=== PATIENT | female | born 1990 | race American Indian/Alaskan Native ===

== ENCOUNTER 2016-08-06 01:10 | Emergency (ER) | payer SELFPAY ==
[2016-08-06 02:14] LABS: Basophils % (Auto) 0.8 % (0.0-1.8); Eosinophils % (Auto) 3.1 % (0.0-4.3); Hematocrit 34.7 % (30.3-42.9); Hemoglobin 11.4 gm/dl (10.1-14.3); Mean Corpuscular HGB Conc 33 % (30-34); Mean Corpuscular Hemoglobin 27 pg (28-32); Mean Corpuscular Volume 81 fl (79-97); Platelet Count 325 K/mm3 (140-440); Red Blood Count 4.26 M/mm3 (3.65-5.03); Red Cell Distribution Width 14.8 % (13.2-15.2)
[2016-08-06 02:27] LABS: Alanine Aminotransferase 11 units/L (7-56); Albumin/Globulin Ratio 1.4 %; Alkaline Phosphatase 56 units/L (35-129); Anion Gap 17 mmol/L; BUN/Creatinine Ratio 14.28; Blood Urea Nitrogen 10 mg/dL (7-17); Carbon Dioxide 24 mmol/L (22-30); Chloride 101.3 mmol/L (98-107); Glucose 95 mg/dL (65-100); Sodium 138 mmol/L (137-145); Total Protein 6.9 g/dL (6.3-8.2)
--- NOTE | 2016-08-06 04:06 | Cat Scan Report ---
FINAL REPORT EXAM: CT HEAD/BRAIN WO CON HISTORY: headache COMPARISON: None available. TECHNIQUE: Axial images obtained skull base through vertex. FINDINGS: No acute intracranial hemorrhage, midline shift or pathologic extra axial fluid collection. Ventricles and cisterns are normal in size and configuration for the patient's age. Ashby-white differentiation preserved. Calvarium grossly intact. Visualized para-nasal sinuses and mastoid air cells are clear. Visualized orbits are grossly unremarkable. IMPRESSION: No grossly acute intracranial abnormality.
[2016-08-06] MEDS ORDERED: BENADRYL IV ONE (17:09)
[2016-08-06] MEDS ORDERED: REGLAN IV ONE (17:09)
[2016-08-06] MEDS ORDERED: ZOFRAN IV ONE (17:09)
[2016-08-06] MEDS ORDERED: TORADOL IV ONE (17:09)
[2016-08-06] MEDS ORDERED: NACL 0.9% 1000 ML 1,000 ML IV ONE (17:26)
--- NOTE | 2016-08-06 17:26 | Emergency Department Report ---
ED Headache HPI - General Chief Complaint: Syncope Stated Complaint: SYNCOPAL EPISODE/MIGRAINE Time Seen by Provider: 08/06/16 16:28 Source: patient Exam Limitations: no limitations - History of Present Illness Initial Comments: 26 year old female presents to the hospital with headache 1 month. Headache is global and worse behind the eyes, constant, rated 10/10 intensity without aggravating or alleviating factors. Positive white sensitivity reported. No nausea, vomiting, neck pain, or fever. Patient states she has had decreased by mouth intake secondary to pain. She passed out last night was standing and passed out 2 more times [id number] after attempting to stand up. No complaints of chest pain or shortness of breath. Patient fell backwards striking her back and complains of posterior back pain all over that is 10/10 in intensity, constant, aching, and worse with movement and palpation. Patient denies previous headache syndrome Allergies/Adverse Reactions: Allergies No Known Allergies Allergy (Unverified 09/14/15 11:54) Home Medications: Ambulatory Orders Doxycycline [Vibramycin CAP] 100 mg PO Q12HR #14 capsule 09/14/15 Ibuprofen [Motrin] 600 mg PO Q8H PRN #30 tablet 08/06/16 Ondansetron [Zofran Odt] 4 mg PO Q8HR PRN #20 tab.rapdis 08/06/16 traMADol [Ultram 50 MG tab] 50 mg PO Q6HR PRN #20 tablet 08/06/16 ED Review of Systems ROS: Stated complaint: SYNCOPAL EPISODE/MIGRAINE Other details as noted in HPI Comment: All other systems reviewed and negative Other: Constitutional: No fevers chills Eyes: No eye pain visual changes ENT: No ear pain or throat pain Neck: Denies pain Respiratory: Denies cough wheezing shortness of breath Cardiovascular: Denies chest pain, palpitations, syncope GI: Denies abdominal pain, nausea, vomiting, diarrhea : Denies dysuria Musculoskeletal: Denies back pain Skin: Denies rash, lesions, erythema Neurologic: Denies numbness, weakness Psychiatric: Denies suicidal ideation, hallucinations ED Past Medical Hx - Past Medical History Previous Medical History?: No - Surgical History Additional Surgical History: Ectopic Pregnancies X3 - Social History Smoking Status: Current Every Day Smoker Substance Use Type: None - Medications Home Medications: Home Medications Medication Instructions Recorded Confirmed Last Taken Type Doxycycline [Vibramycin CAP] 100 mg PO Q12HR #14 capsule 09/14/15 Unknown Rx Ibuprofen [Motrin] 600 mg PO Q8H PRN #30 tablet 08/06/16 Unknown Rx Ondansetron [Zofran Odt] 4 mg PO Q8HR PRN #20 tab.rapdis 08/06/16 Unknown Rx traMADol [Ultram 50 MG tab] 50 mg PO Q6HR PRN #20 tablet 08/06/16 Unknown Rx ED Physical Exam - General Limitations: No Limitations - Other Other exam information: General: No limitations, patient is alert in no acute distress Head exam: Atraumatic, normocephalic Eyes exam: Normal appearance, pupils equal reactive to light, extraocular movements intact ENT: Moist mucous membrane, normal oropharynx Neck exam: Normal inspection, full range of motion, no meningismus nontender Respiratory exam: Clear to auscultation bilateral, no wheezes, rales, crackles Cardiovascular: Normal rate and rhythm, normal heart sounds Abdomen: Soft, nondistended, and nontender, with normal bowel sounds, no rebound, or guarding Extremity: Full range of motion normal inspection no deformity Back: Normal Inspection, full range of motion, generalized And paraspinal muscle tenderness lumbar back and bilateral paraspinal muscle thoracic back tenderness Neurologic: Alert, oriented x3, cranial nerves intact, no motor or sensory deficit Psychiatric: normal affect, normal mood Skin: Warm, dry, intact ED Course Vital Signs 08/06/16 08/06/16 08/06/16 01:33 15:56 15:57 Temperature 98.4 F Pulse Rate 81 77 Pulse Rate [ Lying] Pulse Rate [ Sitting] Pulse Rate [ Standing] Respiratory 12 34 H 16 Rate Blood Pressure 130/101 98/63 Blood Pressure 130/101 [Left] Blood Pressure [Lying] Blood Pressure [Sitting] Blood Pressure [Standing] O2 Sat by Pulse 99 100 100 Oximetry 08/06/16 08/06/16 08/06/16 15:59 16:01 16:03 Temperature Pulse Rate 86 77 81 Pulse Rate [ Lying] Pulse Rate [ Sitting] Pulse Rate [ Standing] Respiratory 12 16 10 L Rate Blood Pressure 98/63 96/55 96/55 Blood Pressure [Left] Blood Pressure [Lying] Blood Pressure [Sitting] Blood Pressure [Standing] O2 Sat by Pulse 100 99 100 Oximetry 08/06/16 08/06/16 08/06/16 16:05 16:07 16:09 Temperature Pulse Rate 76 76 85 Pulse Rate [ Lying] Pulse Rate [ Sitting] Pulse Rate [ Standing] Respiratory 18 16 15 Rate Blood Pressure 96/55 96/55 96/55 Blood Pressure [Left] Blood Pressure [Lying] Blood Pressure [Sitting] Blood Pressure [Standing] O2 Sat by Pulse 100 100 100 Oximetry 08/06/16 08/06/16 08/06/16 16:11 16:13 16:15 Temperature Pulse Rate 71 67 71 Pulse Rate [ Lying] Pulse Rate [ Sitting] Pulse Rate [ Standing] Respiratory 16 17 16 Rate Blood Pressure 96/55 96/55 96/55 Blood Pressure [Left] Blood Pressure [Lying] Blood Pressure [Sitting] Blood Pressure [Standing] O2 Sat by Pulse 100 100 100 Oximetry 08/06/16 08/06/16 08/06/16 16:17 16:19 16:21 Temperature Pulse Rate 71 72 66 Pulse Rate [ Lying] Pulse Rate [ Sitting] Pulse Rate [ Standing] Respiratory 16 15 15 Rate Blood Pressure 96/55 96/55 96/55 Blood Pressure [Left] Blood Pressure [Lying] Blood Pressure [Sitting] Blood Pressure [Standing] O2 Sat by Pulse 100 100 100 Oximetry 08/06/16 08/06/16 08/06/16 16:23 16:25 16:27 Temperature Pulse Rate 72 80 77 Pulse Rate [ Lying] Pulse Rate [ Sitting] Pulse Rate [ Standing] Respiratory 15 14 17 Rate Blood Pressure 96/55 103/66 105/69 Blood Pressure [Left] Blood Pressure [Lying] Blood Pressure [Sitting] Blood Pressure [Standing] O2 Sat by Pulse 100 100 100 Oximetry 08/06/16 08/06/16 08/06/16 16:29 16:31 17:01 Temperature Pulse Rate 87 84 75 Pulse Rate [ Lying] Pulse Rate [ Sitting] Pulse Rate [ Standing] Respiratory 13 19 14 Rate Blood Pressure 106/71 106/71 106/74 Blood Pressure [Left] Blood Pressure [Lying] Blood Pressure [Sitting] Blood Pressure [Standing] O2 Sat by Pulse 100 100 Oximetry 08/06/16 08/06/16 08/06/16 17:03 17:05 17:07 Temperature Pulse Rate 71 66 67 Pulse Rate [ Lying] Pulse Rate [ Sitting] Pulse Rate [ Standing] Respiratory 15 14 16 Rate Blood Pressure 106/74 106/74 106/74 Blood Pressure [Left] Blood Pressure [Lying] Blood Pressure [Sitting] Blood Pressure [Standing] O2 Sat by Pulse 100 100 100 Oximetry 08/06/16 08/06/16 08/06/16 17:09 17:11 17:13 Temperature Pulse Rate 66 68 69 Pulse Rate [ 80 Lying] Pulse Rate [ 77 Sitting] Pulse Rate [ 84 Standing] Respiratory 16 16 15 Rate Blood Pressure 106/74 106/74 106/74 Blood Pressure [Left] Blood Pressure 103/66 [Lying] Blood Pressure 105/69 [Sitting] Blood Pressure 106/71 [Standing] O2 Sat by Pulse 100 100 100 Oximetry 08/06/16 08/06/16 08/06/16 17:15 17:17 17:19 Temperature Pulse Rate 69 72 63 Pulse Rate [ Lying] Pulse Rate [ Sitting] Pulse Rate [ Standing] Respiratory 15 16 13 Rate Blood Pressure 106/74 106/74 106/74 Blood Pressure [Left] Blood Pressure [Lying] Blood Pressure [Sitting] Blood Pressure [Standing] O2 Sat by Pulse 100 100 100 Oximetry 08/06/16 08/06/16 08/06/16 17:21 17:23 17:25 Temperature Pulse Rate 55 L 65 58 L Pulse Rate [ Lying] Pulse Rate [ Sitting] Pulse Rate [ Standing] Respiratory 13 16 15 Rate Blood Pressure 106/74 106/74 106/74 Blood Pressure [Left] Blood Pressure [Lying] Blood Pressure [Sitting] Blood Pressure [Standing] O2 Sat by Pulse 100 100 100 Oximetry 08/06/16 08/06/16 08/06/16 17:27 17:29 17:31 Temperature Pulse Rate 67 69 67 Pulse Rate [ Lying] Pulse Rate [ Sitting] Pulse Rate [ Standing] Respiratory 16 16 16 Rate Blood Pressure 106/74 106/74 106/74 Blood Pressure [Left] Blood Pressure [Lying] Blood Pressure [Sitting] Blood Pressure [Standing] O2 Sat by Pulse 100 100 100 Oximetry 08/06/16 08/06/16 08/06/16 17:33 17:35 17:37 Temperature Pulse Rate 68 69 69 Pulse Rate [ Lying] Pulse Rate [ Sitting] Pulse Rate [ Standing] Respiratory 16 15 17 Rate Blood Pressure 106/74 106/74 106/74 Blood Pressure [Left] Blood Pressure [Lying] Blood Pressure [Sitting] Blood Pressure [Standing] O2 Sat by Pulse 100 100 100 Oximetry 08/06/16 08/06/1617 17:39 17:40 17:41 Temperature Pulse Rate 69 73 85 Pulse Rate [ Lying] Pulse Rate [ Sitting] Pulse Rate [ Standing] Respiratory 16 16 23 Rate Blood Pressure 106/74 106/74 106/74 Blood Pressure [Left] Blood Pressure [Lying] Blood Pressure [Sitting] Blood Pressure [Standing] O2 Sat by Pulse 100 100 100 Oximetry 08/06/16 08/06/16 08/06/16 17:59 18:00 18:01 Temperature Pulse Rate 73 73 69 Pulse Rate [ Lying] Pulse Rate [ Sitting] Pulse Rate [ Standing] Respiratory 21 13 17 Rate Blood Pressure 106/74 87/45 87/45 Blood Pressure [Left] Blood Pressure [Lying] Blood Pressure [Sitting] Blood Pressure [Standing] O2 Sat by Pulse 100 100 100 Oximetry 08/06/16 08/06/16 08/06/16 18:03 18:05 18:07 Temperature Pulse Rate 70 70 73 Pulse Rate [ Lying] Pulse Rate [ Sitting] Pulse Rate [ Standing] Respiratory 15 16 14 Rate Blood Pressure 87/45 87/45 87/45 Blood Pressure [Left] Blood Pressure [Lying] Blood Pressure [Sitting] Blood Pressure [Standing] O2 Sat by Pulse 100 100 100 Oximetry 08/06/16 08/06/16 08/06/16 18:09 18:11 18:13 Temperature Pulse Rate 81 77 80 Pulse Rate [ Lying] Pulse Rate [ Sitting] Pulse Rate [ Standing] Respiratory 15 13 16 Rate Blood Pressure 87/45 87/45 87/45 Blood Pressure [Left] Blood Pressure [Lying] Blood Pressure [Sitting] Blood Pressure [Standing] O2 Sat by Pulse 100 100 100 Oximetry 08/06/16 08/06/16 08/06/16 18:15 18:17 18:19 Temperature Pulse Rate 78 81 78 Pulse Rate [ Lying] Pulse Rate [ Sitting] Pulse Rate [ Standing] Respiratory 20 16 14 Rate Blood Pressure 87/45 87/45 87/45 Blood Pressure [Left] Blood Pressure [Lying] Blood Pressure [Sitting] Blood Pressure [Standing] O2 Sat by Pulse 99 100 100 Oximetry 08/06/16 08/06/16 08/06/16 18:21 18:23 18:25 Temperature Pulse Rate 80 71 69 Pulse Rate [ Lying] Pulse Rate [ Sitting] Pulse Rate [ Standing] Respiratory 14 13 13 Rate Blood Pressure 87/45 87/45 87/45 Blood Pressure [Left] Blood Pressure [Lying] Blood Pressure [Sitting] Blood Pressure [Standing] O2 Sat by Pulse 100 100 100 Oximetry 08/06/16 08/06/16 08/06/16 18:27 18:29 18:31 Temperature Pulse Rate 73 72 72 Pulse Rate [ Lying] Pulse Rate [ Sitting] Pulse Rate [ Standing] Respiratory 14 15 14 Rate Blood Pressure 87/45 87/45 106/74 Blood Pressure [Left] Blood Pressure [Lying] Blood Pressure [Sitting] Blood Pressure [Standing] O2 Sat by Pulse 100 100 100 Oximetry 08/06/16 08/06/16 08/06/16 18:33 18:35 18:37 Temperature Pulse Rate 73 74 72 Pulse Rate [ Lying] Pulse Rate [ Sitting] Pulse Rate [ Standing] Respiratory 16 15 15 Rate Blood Pressure 106/74 106/74 106/74 Blood Pressure [Left] Blood Pressure [Lying] Blood Pressure [Sitting] Blood Pressure [Standing] O2 Sat by Pulse 100 99 99 Oximetry 08/06/16 08/06/16 08/06/16 18:39 18:40 18:41 Temperature Pulse Rate 75 70 65 Pulse Rate [ Lying] Pulse Rate [ Sitting] Pulse Rate [ Standing] Respiratory 16 11 L 12 Rate Blood Pressure 106/74 85/55 85/55 Blood Pressure [Left] Blood Pressure [Lying] Blood Pressure [Sitting] Blood Pressure [Standing] O2 Sat by Pulse 99 100 Oximetry 08/06/16 08/06/16 08/06/16 18:43 18:45 18:47 Temperature Pulse Rate 69 65 67 Pulse Rate [ Lying] Pulse Rate [ Sitting] Pulse Rate [ Standing] Respiratory 15 14 14 Rate Blood Pressure 85/55 85/55 85/55 Blood Pressure [Left] Blood Pressure [Lying] Blood Pressure [Sitting] Blood Pressure [Standing] O2 Sat by Pulse 100 98 99 Oximetry 08/06/16 08/06/16 08/06/16 18:49 19:00 20:00 Temperature 98 F Pulse Rate 71 75 86 Pulse Rate [ Lying] Pulse Rate [ Sitting] Pulse Rate [ Standing] Respiratory 15 16 16 Rate Blood Pressure 85/55 Blood Pressure 92/47 97/56 [Left] Blood Pressure [Lying] Blood Pressure [Sitting] Blood Pressure [Standing] O2 Sat by Pulse 98 100 100 Oximetry 08/06/16 20:43 Temperature Pulse Rate 76 Pulse Rate [ Lying] Pulse Rate [ Sitting] Pulse Rate [ Standing] Respiratory 16 Rate Blood Pressure Blood Pressure 114/78 [Left] Blood Pressure [Lying] Blood Pressure [Sitting] Blood Pressure [Standing] O2 Sat by Pulse 99 Oximetry ED Medical Decision Making - Lab Data Result diagrams: 08/06/16 01:50 08/06/16 01:50 Lab Results 08/06/16 08/06/16 08/06/16 Range/Units 01:45 01:50 01:50 WBC 8.0 (4.5-11.0) K/mm3 RBC 4.26 (3.65-5.03) M/mm3 Hgb 11.4 (10.1-14.3) gm/dl Hct 34.7 (30.3-42.9) % MCV 81 (79-97) fl MCH 27 L (28-32) pg MCHC 33 (30-34) % RDW 14.8 (13.2-15.2) % Plt Count 325 (140-440) K/mm3 Lymph % (Auto) 22.6 (13.4-35.0) % Worth % (Auto) 6.4 (0.0-7.3) % Eos % (Auto) 3.1 (0.0-4.3) % Baso % (Auto) 0.8 (0.0-1.8) % Lymph # 1.8 (1.2-5.4) K/mm3 Worth # 0.5 (0.0-0.8) K/mm3 Eos # 0.3 (0.0-0.4) K/mm3 Baso # 0.1 (0.0-0.1) K/mm3 Seg Neutrophils % 67.1 (40.0-70.0) % Seg Neutrophils # 5.4 (1.8-7.7) K/mm3 Sodium 138 (137-145) mmol/L Potassium 4.0 (3.6-5.0) mmol/L Chloride 101.3 (98-107) mmol/L Carbon Dioxide 24 (22-30) mmol/L Anion Gap 17 mmol/L BUN 10 (7-17) mg/dL Creatinine 0.7 (0.7-1.2) mg/dL Estimated GFR > 60 ml/min BUN/Creatinine Ratio 14.28 % Glucose 95 (65-100) mg/dL POC Glucose 100 (70-105) Calcium 9.0 (8.4-10.2) mg/dL Total Bilirubin 0.20 (0.1-1.2) mg/dL AST 13 (5-40) units/L ALT 11 (7-56) units/L Alkaline Phosphatase 56 (35-129) units/L Total Protein 6.9 (6.3-8.2) g/dL Albumin 4.0 (3.9-5) g/dL Albumin/Globulin Ratio 1.4 % HCG, Qual (Negative) 08/06/16 Range/Units 01:50 WBC (4.5-11.0) K/mm3 RBC (3.65-5.03) M/mm3 Hgb (10.1-14.3) gm/dl Hct (30.3-42.9) % MCV (79-97) fl MCH (28-32) pg MCHC (30-34) % RDW (13.2-15.2) % Plt Count (140-440) K/mm3 Lymph % (Auto) (13.4-35.0) % Worth % (Auto) (0.0-7.3) % Eos % (Auto) (0.0-4.3) % Baso % (Auto) (0.0-1.8) % Lymph # (1.2-5.4) K/mm3 Worth # (0.0-0.8) K/mm3 Eos # (0.0-0.4) K/mm3 Baso # (0.0-0.1) K/mm3 Seg Neutrophils % (40.0-70.0) % Seg Neutrophils # (1.8-7.7) K/mm3 Sodium (137-145) mmol/L Potassium (3.6-5.0) mmol/L Chloride (98-107) mmol/L Carbon Dioxide (22-30) mmol/L Anion Gap mmol/L BUN (7-17) mg/dL Creatinine (0.7-1.2) mg/dL Estimated GFR ml/min BUN/Creatinine Ratio % Glucose (65-100) mg/dL POC Glucose (70-105) Calcium (8.4-10.2) mg/dL Total Bilirubin (0.1-1.2) mg/dL AST (5-40) units/L ALT (7-56) units/L Alkaline Phosphatase (35-129) units/L Total Protein (6.3-8.2) g/dL Albumin (3.9-5) g/dL Albumin/Globulin Ratio % HCG, Qual Negative (Negative) - EKG Data -: EKG Interpreted by Me (sinus with sinus arrhythmia rate 73) - Radiology Data Radiology results: report reviewed (ct head: naf), image reviewed (l spine xray : naf) - Medical Decision Making Symptoms improved ED treatment of Reglan, Toradol, Zofran, Benadryl, and normal saline. Patient slept after the medication and woke up pain free. No acute injury identified on CT, x-ray and labwork unremarkable. Patient be discharged with follow-up suggestion - Differential Diagnosis migraine, tension pena, ICH, Intracranial mass, fxt, contusion Critical Care Time: No Critical care attestation.: If time is entered above; I have spent that time in minutes in the direct care of this critically ill patient, excluding procedure time. ED Disposition Clinical Impression: Headache, Contusion, back, Syncope Disposition: TO HOME OR SELFCARE Is pt being admited?: No Does the pt Need Aspirin: No Condition: Stable Instructions: Syncope (ED), Acute Headache (ED), Low Back Strain (ED) Additional Instructions: Take the medication as prescribed. Return if symptoms worsen. Follow-up with the clinic or doctor provided for further evaluation. Return if symptoms worsen. Prescriptions: Ibuprofen [Motrin] 600 mg PO Q8H PRN #30 tablet PRN Reason: Pain Ondansetron [Zofran Odt] 4 mg PO Q8HR PRN #20 tab.rapdis PRN Reason: Nausea And Vomiting traMADol [Ultram 50 MG tab] 50 mg PO Q6HR PRN #20 tablet PRN Reason: Pain Referrals: [facility] [Provider Group] - 2-3 Days THERESA HERNANDEZ MD [Staff Physician] - 2-3 Days [facility] [Outside] - 2-3 Days Time of Disposition: 21:11
[2016-08-06] MEDS ORDERED: NORCO 5/325 PO ONE (18:22)
--- NOTE | 2016-08-06 19:30 | Admit Criteria Form ---
Admission Criteria Documentation: HEADACHES Clinical Indications for Admission to Inpatient Care (Place 'X' for any and all applicable criteria): Admission is indicated for ANY ONE of the following(1)(2)(3)(4): [ X]I. Inpatient admission required rather than observational care (Also use Headaches: Observation Care as appropriate) because of ANY ONE of the following: [X ]a) Severe pain requiring acute inpatient management [ ]b) Altered mental status that is severe or persistent [ ]c) Vomiting or dehydration that is severe or persistent [ ]d) New-onset focal neurologic deficit that is severe or persistent [ ]e) Hypertension requiring inpatient treatment [ ]f) Severe (new) neurologic findings requiring inpatient care as indicated by ANY ONE of following(9)(10): [ ]1) Papilledema [ ]2) Cerebral edema [ ]3) Mass effect on CT scan [ ]4) Cerebral bleeding, ischemia, or vasospasm(16) [ ]5) Hydrocephalus(17) [ ]6) Uncontrolled seizures [ ]g) IV infusion of anticoagulation, platelet inhibitors vasoactive, or antiarrhythmic medication. [ ]h) Cerebral bleeding, hydrocephalus, or vasospasm monitoring (16) [ ]i) Increased intracranial pressure or cerebral edema monitoring (17) [ ]j) Other condition, treatment or monitoring requiring inpatient admission [ ]II. Unruptured but threatening aneurysm or vascular malformation [ ]III. Venous sinus thrombosis [ ]IV. Increased intracranial pressure [ ]V. Cerebral spinal fluid leak with decreased intracranial pressure [ ]. Medication-overuse headache that has failed all outpatient management options [ ]VII. Vasculitis (eg, giant cell (temporal) arteritis, central nervous system vasculitis) requiring IV corticosteroids, IV antithrombotic therapy, or inpatient monitoring (eg, visual symptoms or findings, other ischemic manifestations)[A](10)(11) Extended stay beyond goal length of stay may be needed for (27): [ ]a) Intractable migraine [ ]b) Subarachnoid or intracranial hemorrhage [ ]c) Malignant hypertension [ ]d) Detoxification from drug withdrawal in medication-overuse headache (29) The original [facility] content created by [facility] [employer] has been revised. The portions of the content which have been revised are identified through the use of italic text or in bold, and [employer] has neither reviewed nor approved the modified material.All other unmodified content is copyright [facility]. Please see references footnoted in the original [facility] edition 2016 Admission Criteria Met: Yes
[2016-08-06 21:45] VITALS: BP 116/72
--- NOTE | 2016-08-07 09:55 | XRay Report ---
LUMBOSACRAL SPINE, 3 VIEWS: History: Back pain Findings: The vertebral bodies, disk spaces and posterior elements are intact. No compression deformity or malalignment. The SI joints are symmetric and unremarkable. Impression: 1. No evidence for acute injury to the lumbar spine.
== END 2016-08-06 21:30 | disposition home or self-care (01) ==
LOC: ED 01:10
DX: S00.93XA Contusion of unspecified part of head, initial encounter (principal); R55 Syncope and collapse; W18.09XA Striking against other object with subsequent fall, initial encounter; Y93.89 Activity, other specified; Y99.8 Other external cause status; Y92.89 Other specified places as the place of occurrence of the external cause
CPT/HCPCS: 36415; 70450; 72100; 80053; 82962; 84703; 85025; 93005; 93010; 96361; 96374; 96375; 99284; J1200; J1885; J2405; J2765; J7030